=== PATIENT | female | born 1940 | race Caucasian/White ===

== ENCOUNTER 2020-04-06 16:28 | Outpatient (CLI) | payer MEDICARE, SELFPAY ==
--- NOTE | 2020-04-06 | CTR_ITS ---
PROCEDURE INFORMATION: Exam: CT Angiography Chest Without And With Contrast Exam date and time: 04/06/2020 4:53 PM Age: 79 years old Clinical indication: Patient HX: Anterior chest pain with posterior radiation x several days. Known history of thoracic aneurysm. No priors available this site. ; Additional info: Chest pain. History of thoracic aneurysm. TECHNIQUE: Imaging protocol: Computed tomographic angiography of the chest without and with intravenous contrast. 3D rendering: MIP and/or 3D reconstructed images were created by the technologist. Radiation optimization: All CT scans at this facility use at least one of these dose optimization techniques: automated exposure control; mA and/or kV adjustment per patient size (includes targeted exams where dose is matched to clinical indication); or iterative reconstruction. Contrast material: VISI 320; Contrast volume: 95 ml; Contrast route: 20G RAC; COMPARISON: No relevant prior studies available. RADIATION DOSE METRICS: Total DLP: 1157.64 mGy-cm FINDINGS: Limitations: Opacification of the pulmonary arteries is suboptimal due to timing of contrast injection. Pulmonary arteries: Normal. No pulmonary emboli. Aorta: There is ectasia of the ascending thoracic aorta which measures 4.4 cm without evidence of dissection. There are atherosclerotic changes and calcified plaque in the aortic arch and descending thoracic aorta Lungs: There is minimal focus of ground-glass opacity in the right upper lobe such as an image number 25 and also a small focus on image number 51 in the left lower lobe. These are minimal findings of uncertain significance which could represent early inflammatory disease but are not likely to be clinically significant. There is some calcified granulomas in the left upper lobe on image number 59. There is also an incidental noncalcified 6 mm size nodule in the lingula on image number 61. For patients at low risk (minimal or absent history of smoking and of other known risk factors), no routine follow-up is indicated. For patients at high risk (history of smoking or of other known risk factors), consider optional CT at 12 months. (Shiva et al., Fleischner Society, 2017) There is some minimal dependent atelectasis in both lungs. Pleural space: Unremarkable. No pneumothorax. No pleural effusion. Heart: Unremarkable. No cardiomegaly. No pericardial effusion. Lymph nodes: There are calcified subcarinal and paratracheal lymph nodes in keeping with old granulomatous disease. There is no adenopathy. Bones/joints: Unremarkable. No acute fracture. Soft tissues: Unremarkable. CT/CT angio chest 93804 IMPRESSION: 1. No evidence of pulmonary embolism. 2. Small noncalcified pulmonary nodule, follow-up according to Fleischner society guidelines is recommended. 3. Old granulomatous disease. 4. Two minimal areas of ground-glass opacity as described, likely not of any clinical significance. Radiation Dose CTDIVOL = (mGy): DLP = 1157.64 (mGy-cm)
[2020-04-06] MEDS: iodixanol 320 mg/mL 100mL Btl IV (17:08)
== END 2020-04-06 16:29 | disposition home or self-care (01) ==
LOC: RAD 16:38
PROVIDERS: Visit Provider Family Medicine
DX: R07.9 Chest pain, unspecified (principal); Z87.898 Personal history of other specified conditions; R91.1 Solitary pulmonary nodule
CPT/HCPCS: 71275

== ENCOUNTER → 2020-04-08 16:12 | Outpatient (BNVA) | payer MEDICARE, SELFPAY | PROVIDERS: Visit Provider Registered Nurse | DX: E03.9 Hypothyroidism, unspecified (principal) | CPT/HCPCS: 84443 ==

== ENCOUNTER → 2020-04-21 16:20 | Outpatient (BNVA) | payer MEDICARE, SELFPAY | PROVIDERS: Visit Provider Nurse Practitioner Family | DX: N30.00 Acute cystitis without hematuria (principal); R35.0 Frequency of micturition | CPT/HCPCS: 80053; 81000; 87077; 87086; 87186 ==

== ENCOUNTER → 2020-04-27 09:23 | Outpatient (BNVA) | payer MEDICARE, SELFPAY | PROVIDERS: Visit Provider Nurse Practitioner Family | DX: N30.00 Acute cystitis without hematuria (principal); R31.9 Hematuria, unspecified | CPT/HCPCS: 80053; 87077; 87086; 87186 ==

== ENCOUNTER → 2020-05-07 15:10 | Outpatient (BNVA) | payer MEDICARE, SELFPAY | PROVIDERS: Visit Provider Registered Nurse | DX: N30.00 Acute cystitis without hematuria (principal) | CPT/HCPCS: 81000 ==

== ENCOUNTER → 2020-07-06 15:06 | Outpatient (BNVA) | payer MEDICARE, SELFPAY | PROVIDERS: Visit Provider Registered Nurse | DX: I10 Essential (primary) hypertension (principal); E03.9 Hypothyroidism, unspecified; N30.00 Acute cystitis without hematuria | CPT/HCPCS: 80053; 81000; 84443; 85025 ==

== ENCOUNTER → 2021-08-26 00:01 | Outpatient (BNVA) | payer MEDICARE, SELFPAY | PROVIDERS: PCP Registered Nurse; Visit Provider Registered Nurse | DX: E03.9 Hypothyroidism, unspecified (principal); I10 Essential (primary) hypertension; M54.5 Low back pain; G89.29 Other chronic pain; Z79.1 Long term (current) use of non-steroidal anti-inflammatories (NSAID) | CPT/HCPCS: 80053; 84443 ==

== ENCOUNTER → 2022-01-06 08:52 | Outpatient (BNVA) | payer MEDICARE, SELFPAY | PROVIDERS: PCP Registered Nurse; Visit Provider Registered Nurse | DX: N39.0 Urinary tract infection, site not specified (principal); E53.8 Deficiency of other specified B group vitamins | CPT/HCPCS: 81000 ==

== ENCOUNTER → 2022-01-10 10:53 | Outpatient (BNVA) | payer MEDICARE, SELFPAY | PROVIDERS: PCP Registered Nurse; Visit Provider Registered Nurse | DX: N39.0 Urinary tract infection, site not specified (principal); R39.9 Unspecified symptoms and signs involving the genitourinary system | CPT/HCPCS: 81000 ==

== ENCOUNTER → 2022-01-13 14:55 | Outpatient (BNVA) | payer MEDICARE, SELFPAY | PROVIDERS: PCP Registered Nurse; Visit Provider Registered Nurse | DX: N39.0 Urinary tract infection, site not specified (principal) | CPT/HCPCS: 81000 ==

== ENCOUNTER → 2022-07-12 08:16 | Outpatient (BNVA) | payer MEDICARE, SELFPAY | PROVIDERS: PCP Registered Nurse; Visit Provider Internal Medicine Interventional Cardiology | DX: I71.2 Thoracic aortic aneurysm, without rupture (principal); Z79.899 Other long term (current) drug therapy | CPT/HCPCS: 80061 ==

== ENCOUNTER → 2022-07-19 15:36 | Outpatient (BNVA) | payer MEDICARE, SELFPAY | PROVIDERS: PCP Registered Nurse; Visit Provider Registered Nurse | DX: I10 Essential (primary) hypertension (principal); E53.8 Deficiency of other specified B group vitamins; E03.9 Hypothyroidism, unspecified | CPT/HCPCS: 80053; 82306; 82607; 84443; 85025 ==

== ENCOUNTER → 2023-05-22 16:05 | Outpatient (BNVA) | payer MEDICARE, SELFPAY | PROVIDERS: PCP Registered Nurse; Visit Provider Registered Nurse | DX: E53.8 Deficiency of other specified B group vitamins (principal); I10 Essential (primary) hypertension; E03.9 Hypothyroidism, unspecified | CPT/HCPCS: 80053; 80061; 82607; 84443; 85025 ==

== ENCOUNTER 2023-07-18 11:19 | Outpatient (CLI) | payer MEDICARE, SELFPAY ==
--- NOTE | 2023-07-18 11:36 | XR_ITS ---
WS: [email or web address] EXAMINATION: XR foot RT min 3V* [id number] REASON FOR EXAM: M79.671 - Pain in right foot COMPARISON: None available. ORDER DATE: 07/18/2023 11:56 AM TECHNIQUE: 3 views of the right foot were obtained. X-RAY FINDINGS: There are no fractures or dislocations. No focal abnormal soft tissue swelling. Joint spaces are pres erved. There are 6 mm plantar and dorsal calcaneal spurs IMPRESSION: No fractures or dislocations of the right foot.
== END 2023-07-18 11:20 | disposition home or self-care (01) ==
PROVIDERS: PCP Registered Nurse; Visit Provider Registered Nurse
DX: M79.671 Pain in right foot (principal)
CPT/HCPCS: 73630

== ENCOUNTER → 2023-08-30 11:54 | Outpatient (BNVA) | payer MEDICARE, SELFPAY | PROVIDERS: PCP Registered Nurse; Visit Provider Podiatrist Foot & Ankle Surgery | DX: S92.351A Displaced fracture of fifth metatarsal bone, right foot, initial encounter for closed fracture; W01.0XXA Fall on same level from slipping, tripping and stumbling without subsequent striking against object, initial encounter | CPT/HCPCS: 99203 ==

== ENCOUNTER 2023-09-20 07:49 | Outpatient (CLI) | payer MEDICARE, SELFPAY ==
--- NOTE | 2023-09-20 07:57 | FL_ITS ---
WS: [id number] Exam: FL barium swallow [id number] Date/Time of Exam: 09/20/2023 8:42 AM Reason For Exam: DYSPHAGIA,PHARYNGEAL PHASE Fluoroscopy time: 3min [id number] minutes # of spot films: Oropharyngeal swallowing function appears grossly normal. A persistent anterior filling defect seen i n the cervical esophagus at about the C5-6 level has the appearance of an esophageal web. There were no other intrinsic or extrinsic filling defects in the esophagus. No sign of obvious mass or other ar ea of constriction. The esophagus is nondisplaced and shows normal motility. No hiatal hernia or hellen roesophageal reflux was demonstrated. The esophagus was not displaced. IMPRESSION: 1. 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 2. No sign of intrinsic esophageal mass or other stricture. 3. Normal esophageal motility. No hiatal hernia or reflux demonstrated during fluoroscopy.
== END 2023-09-20 07:50 | disposition home or self-care (01) ==
LOC: RAD 07:53
PROVIDERS: PCP Registered Nurse; Visit Provider Otolaryngology
DX: R13.13 Dysphagia, pharyngeal phase (principal)
CPT/HCPCS: 74220

== ENCOUNTER → 2023-09-27 10:34 | Outpatient (BNVA) | payer MEDICARE, SELFPAY | PROVIDERS: PCP Registered Nurse; Visit Provider Podiatrist Foot & Ankle Surgery | DX: S92.354D Nondisplaced fracture of fifth metatarsal bone, right foot, subsequent encounter for fracture with routine healing; X58.XXXD Exposure to other specified factors, subsequent encounter | CPT/HCPCS: 73630; 99213 ==

== ENCOUNTER 2023-11-07 09:30 | Outpatient (CLI) | payer MEDICARE, SELFPAY ==
--- NOTE | 2023-11-07 09:34 | FL_ITS ---
WS: [id number] Exam: FL barium swallow modifd [id number] Date/Time of Exam: 11/07/2023 10:15 AM Reason For Exam: Pharyngeal dysphagia Fluoroscopy time: 2min [id number] minutes # of spot films: Modified barium swallow was performed in conjunction with the speech therapy service. Oral pharyngeal phase of swallowing was normal. The patient tolerated all consistencies of barium mix ture foodstuffs without aspiration or penetration. The patient ingested a barium tablet without compl ication. IMPRESSION: 1. Unremarkable modified barium swallow. No aspiration or penetration noted. A separate report with recommendations will follow from the speech therapy service.
== END 2023-11-07 09:31 | disposition home or self-care (01) ==
LOC: RAD 09:30
PROVIDERS: PCP Registered Nurse; Visit Provider Otolaryngology
DX: R13.13 Dysphagia, pharyngeal phase (principal)
CPT/HCPCS: 74230; 92611

== ENCOUNTER 2024-04-19 09:48 | Outpatient (CLI) | payer MEDICARE, SELFPAY ==
--- NOTE | 2024-04-19 10:15 | USCV_ITS ---
Danae Billingsley Age: 83 Gender: F : 1940 Exam Date: 04/19/2024 10:16 Ordering Phys: Tariq Gonsalez [employer]INE[employer] Technologist: VICKEY Exam Location: [facility] – [place] Indication: EVAL FOR CAROTID STENOSIS, NECK PAIN Risk Factors: Previous Vascular Surgery: Right Brachial BP: / Left Brachial BP: / Right Left Velocity (cm/s) Spectral Plaque Velocity (cm/s) Spectral Plaque Syst/Diast Broadening Syst/Diast Broadening 84.00/ 15.20 Prox CCA 106.20/ 20.40 77.50/ 19.60 Mid CCA 66.50 / 15.20 70.70/ 17.30 Distal CCA 70.70 / 16.20 56.60/ 12.50 Prox ICA 50.90 / 12.40 62.10/ 16.00 Mid ICA 80.90 / 21.10 49.90/ 11.40 Distal ICA 86.60 / 16.90 80.10 ECA 87.30 0.90 ICA/CCA 1.20 Antegrade Vertebral Antegrade 36.90/ 8.50 cm/s 37.00/ 8.20 cm/s Tri Subclavian Tri 203.5 119.8 0 0 FINDINGS Comparison: none available. No significant elevation of systolic or diastolic velocities. Mixture of calcified and noncalcified plaque in the bifurcations. More focal plaque left bifurcation. Antegrade vertebral arteries. CONCLUSIONS Bilateral ICA stenosis less than 50%. Carotid atherosclerosis, greater on the left. Dr. Windy Mane DO (Electronically Signed) Final Date: 19 Apr 2024 10:59 S
== END 2024-04-19 09:49 | disposition home or self-care (01) ==
LOC: RAD 09:48
PROVIDERS: PCP Registered Nurse; Visit Provider Registered Nurse
DX: Z13.6 Encounter for screening for cardiovascular disorders (principal); I65.23 Occlusion and stenosis of bilateral carotid arteries
CPT/HCPCS: 93880

== ENCOUNTER → 2024-10-08 10:08 | Outpatient (BNVA) | payer MEDICARE, SELFPAY | PROVIDERS: PCP Registered Nurse; Visit Provider Registered Nurse | DX: I10 Essential (primary) hypertension (principal); E53.8 Deficiency of other specified B group vitamins | CPT/HCPCS: 80053; 80061; 82607; 84443; 85025 ==

== ENCOUNTER → 2025-02-11 10:12 | Outpatient (BNVA) | payer MEDICARE, SELFPAY | PROVIDERS: PCP Registered Nurse; Visit Provider Registered Nurse | DX: J02.0 Streptococcal pharyngitis (principal); R59.0 Localized enlarged lymph nodes; E03.9 Hypothyroidism, unspecified | CPT/HCPCS: 80048; 84443; 85025; 86308; 87880 ==

== ENCOUNTER → 2025-07-17 08:52 | Outpatient (BNVA) | payer MEDICARE, SELFPAY | PROVIDERS: PCP Registered Nurse; Visit Provider Registered Nurse | DX: E53.8 Deficiency of other specified B group vitamins (principal); I10 Essential (primary) hypertension; E03.9 Hypothyroidism, unspecified | CPT/HCPCS: 80061; 82306; 82607; 84443 ==

== ENCOUNTER → 2025-09-24 08:59 | Outpatient (BNVA) | payer MEDICARE, SELFPAY | PROVIDERS: PCP Registered Nurse; Visit Provider Registered Nurse | DX: R50.9 Fever, unspecified (principal) | CPT/HCPCS: 87400 ==

== ENCOUNTER → 2025-10-07 14:42 | Outpatient (BNVA) | payer MEDICARE, SELFPAY | PROVIDERS: PCP Registered Nurse; Visit Provider Registered Nurse | DX: N39.0 Urinary tract infection, site not specified (principal) | CPT/HCPCS: 81000; 87086 ==

== ENCOUNTER → 2025-10-14 09:25 | Outpatient (BNVA) | payer MEDICARE, SELFPAY | PROVIDERS: PCP Registered Nurse; Visit Provider Registered Nurse | DX: N39.0 Urinary tract infection, site not specified (principal) | CPT/HCPCS: 81000; 87086 ==